=== PATIENT | female | born 1945 | race Two or more races ===

== ENCOUNTER 2025-01-29 14:50 | Emergency (ER) | payer MEDICARE, SELFPAY ==
[2025-01-29 14:51] VITALS: BMI 32.8
[2025-01-29 15:05] VITALS: BP 164/89; PULSE 91; RESP 17; O2SAT 98
--- NOTE | 2025-01-29 15:11 | EKG_ITS ---
[facility] Test Date: 2025-01-29 Pat Name: ARLEN CERVANTES Department: Room: - Gender: Female Package Checker: : 1945 Requested By: ED Temporary Provider Order Number: [id number] Reading MD: ED Temporary Provider Measurements Intervals [place] Rate: 67 P: ID: QRS: -60 QRSD: 194 T: 102 QT: 429 QTc: 453 Interpretive Statements ELECTRONIC VENTRICULAR PACEMAKER ABNORMAL RHYTHM ECG Compared to ECG 03/11/2024 01:44:52 No significant changes /[id number]/[email or web address]/[id number].pdf
--- NOTE | 2025-01-29 15:42 | XR_ITS ---
Examination: CT abdomen and pelvis without contrast. Coronal 3-D reconstructions. Sagittal 2-D reconstructions. Date and time of exam:January 29, 2025 1554 hours Comparison March 11, 2025 INDICATIONS: Lower pelvic pain and burning urination beginning 2 days ago CTDI: vol (mGy): 8.94 DLP: (mGycm): 504 Technique: Axial images of the abdomen have been obtained, 3 mm slice thickness Intravenous contrast material has not been administered. Low dose protocols were performed. One or more of the following dose reduction techniques were used; automated exposure control, adjustment of the mA and/or KV according to patient size, use of iterative reconstruction technique. Findings: Retrocardiac gastric hernia. No focal liver or splenic lesions Absent gallbladder No pancreatic mass 23 mm fat-containing left adrenal mass Absent right kidney No left renal calculi or hydronephrosis, no ureteral calculi Lower pole left renal cyst 1.4 cm Aorta normal size No pericecal inflammatory change Colonic diverticulosis, no diverticulitis Minimal thickening of urinary bladder wall up to 3 mm Absent uterus No pelvic mass Grade 1 anterolisthesis L4 on L5 Prominent osteopenia IMPRESSION: Absent right kidney No left renal calculi hydronephrosis or ureteral calculi Minimal cystitis pattern
--- NOTE | 2025-01-29 15:43 | PD.EDRME ---
Rapid Medical Screening Exam RME Arrival date/time: 01/29/25 14:50 Chief Complaint: Abdominal Pain Vital signs: Vital Signs Pulse Rate 91 01/29/25 15:05 Respiratory Rate 17 01/29/25 15:05 Blood Pressure 164/89 H 01/29/25 15:05 Pulse Oximetry (%) 98 01/29/25 15:05 Oxygen Delivery Method Room Air 01/29/25 15:05 Pulse ox room air is 98% Vital signs reviewed by provider: Yes RME Narrative: Complains of abdominal pain that is right and left lower quadrant. Denies nausea, vomiting, diarrhea.
[2025-01-29 16:28] LABS: Collection Type, Urine Clean Catch
[2025-01-29 16:33] LABS: Basophils # (Auto) 0.1 Thou/mm3 (0.0-0.2); Basophils % (Auto) 1 % (0-2.5); Eosinophils # (Auto) 0.1 Thou/mm3 (0.0-0.5); Eosinophils % (Auto) 2 % (0-10); Hematocrit 36.9 % (36.0-46.0); Hemoglobin 12.5 g/dL (12.0-16.0); Immature Granulocytes Auto 0.03 Thou/mm3 (0.00-0.00); Lymphocytes # (Auto) 1.7 Thou/mm3 (1.0-4.8); Lymphocytes % (Auto) 20 % (10-50); Mean Corpuscular HGB Conc 33.9 g/dl (31.0-37.0); Mean Corpuscular Hemoglobin 29.3 pg (25.0-35.0); Mean Corpuscular Volume 87 fL (80-100); Monocytes # (Auto) 0.5 Thou/mm3 (0.0-0.8); Monocytes % (Auto) 7 % (0-12); Neutrophils # (Auto) 5.8 Thou/mm3 (1.8-7.7); Neutrophils % (Auto) 70 % (37-80); Nucleated Red Blood Cell # 0.00 Thou/mm3 (0.00-0.00); Nucleated Red Blood Cell % 0 /100 WBC (0); Platelet Count 166 Thou/mm3 (140-440); RDW Standard Deviation 43.2 fL (36.4-46.3); Red Blood Count 4.26 Miln/mm3 (4.00-5.20); White Blood Count 8.2 Thou/mm3 (3.6-11.0)
[2025-01-29 16:49] LABS: Alanine Aminotransferase 12 U/L (10-49); Albumin, Serum 4.4 gm/dL (3.4-4.8); Albumin/Globulin Ratio 1.6 (1.2-2.2); Alkaline Phosphatase 79 U/L (46-116); Anion Gap 10 (7-16); Aspartate Amino Transferase 19 U/L (0-34); BUN/Creatinine Ratio 5 Ratio (12-20); Bilirubin,Total 0.7 mg/dL (0.3-1.2); Blood Urea Nitrogen < 5 mg/dL (9-23); Calcium 9.5 mg/dL (8.3-10.6); Calcium (Corrected) 9.5 mg/dL (8.5-10.1); Carbon Dioxide 23.9 mMol/L (20.0-31.0); Chloride 100 mMol/L (98-107); Creatinine (Component) 1.0 mg/dL (0.6-1.3); Estimated Creatinine Clearance 46.0 mL/min (>60); Globulin 2.8 gm/dL (2.3-3.5); Glucose 114 mg/dL (74-106); Osmolality,Calculated 266 (275-295); Potassium 4.2 mMol/L (3.4-5.1); Sodium 134 mMol/L (136-145); Total Protein 7.2 gm/dL (5.7-8.2); eGFR 57 See Note
[2025-01-29 16:57] LABS: Bacteria,Urine Rare; Bilirubin,Urine Negative (Negative); Blood,Urine Negative (Negative); Clarity,Urine Clear (Clear/Hazy); Color,Urine Colorless (Lt Yel-Yel); Glucose, Urine Negative (Negative); Ketones,Urine Negative (Negative); Leukocyte Esterase,Urine Positive (Negative); Nitrite,Urine Negative (Negative); PH,Urine 6.0 (5.0-7.0); Protein,Urine Negative (Neg - Trace); RBC,Urine 1 /hpf (0-3); Specific Gravity,Urine 1.008 (1.001-1.035); Squamous Epithelial Cell,Urine 1 /hpf (0-5); Urobilinogen,Urine Negative mg/dL (0.0-1.0); WBC,Urine 27 /hpf (0-5)
--- NOTE | 2025-01-29 22:09 | PC.NURSE ---
2008 NA X 1 AT THIS TIME.
--- NOTE | 2025-01-29 22:21 | PC.NURSE ---
No answer when called in the lobby
--- NOTE | 2025-01-29 22:27 | PD.EDADDENDU ---
Emergency Room Addendum Addendum Narrative: When I looked for the patient to start my evaluation, I was told the patient eloped. Terrence Wilson MD
--- NOTE | 2025-01-30 00:45 | PC.NURSE ---
PT CALLED FROM LOBBY AND I RECEIVED NO ANSWER.
== END 2025-01-30 00:45 | disposition left against medical advice (07) ==
PROVIDERS: Family Medicine; Emergency Provider Emergency Medicine; PCP Family Medicine
DX: R10.31 Right lower quadrant pain (principal); R10.32 Left lower quadrant pain; R94.31 Abnormal electrocardiogram [ECG] [EKG]; Z53.29 Procedure and treatment not carried out because of patient's decision for other reasons
CPT/HCPCS: 36415; 74176; 80053; 81001; 85025; 87077; 87086; 87186; 93005; 99281

== ENCOUNTER → 2025-02-20 | Outpatient (CLI) | payer MEDICARE, SELFPAY ==
--- NOTE | 2025-02-20 15:59 | XR_ITS ---
Examination: CT abdomen without intravenous contrast. Coronal 2-D reconstructions. Sagittal 2-D reconstructions. Date and time of exam:February 20, 2025, 6008 hours Comparison January 29, 2025 INDICATIONS: History right renal cell carcinoma, post nephrectomy, chronic abdominal pain CTDI: vol (mGy): 9.94 DLP: (mGycm): 400 Technique: Axial images of the abdomen have been obtained, 3 mm slice thickness, without intravenous contrast 2-D sagittal coronal reconstructions Low dose protocols were performed. One or more of the following dose reduction techniques were used; automated exposure control, adjustment of the mA and/or KV according to patient size, use of iterative reconstruction technique. Findings: No focal liver lesion No pancreatic mass Stable fat-containing left adrenal adenoma, 24 mm Absent right kidney No left renal solid mass Lower pole 3.7 cm left renal cyst No pericecal inflammatory change No adenopathy Small fat-containing umbilical hernia Grade 1 anterolisthesis L4 on L5 IMPRESSION: No interval metastatic disease No acute process in the abdomen
== END | disposition home or self-care (01) ==
PROVIDERS: PCP Nurse Practitioner Family; Referring Provider Nurse Practitioner Family; Visit Provider Nurse Practitioner Family
DX: G89.29 Other chronic pain (principal); R10.9 Unspecified abdominal pain
CPT/HCPCS: 74150

== ENCOUNTER 2025-04-04 09:20 | Day surgery (SDC) | payer MEDICARE, SELFPAY ==
[2025-04-04] VITALS (11 sets, daily range): BP systolic 128–174; BP diastolic 67–86; PULSE 60–81; RESP 13–21; TEMP 36.2–36.6; O2SAT 95–100; BMI 30.8
[2025-04-04] MEDS: Ampicillin Inj 2,000 MG in SODIUM CHLORIDE 0.9% (POP) 100 ML 100 MG IV (10:04)
[2025-04-04] MEDS: GENTAMICIN/NS 80 MG IVPB 80 MG in PRE-MIXED 1 BAG 50 MG IV (10:30)
[2025-04-04] MEDS: SODIUM CHLORIDE 0.9% 500 ML 500 ML 20 ML IV (10:57)
[2025-04-04] MEDS: MIDAZOLAM INJ 1 MG/ML VIAL 2 ML (ASD USE ONLY) 2 MG IVP (11:08)
[2025-04-04] MEDS: fentaNYL CIT INJ 50 mCg/ML AMP 2ML (ASD USE ONLY) IVP (11:08)
== END 2025-04-04 12:20 | disposition home or self-care (01) ==
PROVIDERS: PCP Family Medicine; Referring Provider Specialist; Visit Provider Specialist
PROC: 0DBE8ZX Excision of Large Intestine, Via Natural or Artificial Opening Endoscopic, Diagnostic (ICD-10-PCS; CPT 45380; principal; 2025-04-04 10:15)
DX: D12.3 Benign neoplasm of transverse colon (principal); K64.9 Unspecified hemorrhoids; K57.30 Diverticulosis of large intestine without perforation or abscess without bleeding; I10 Essential (primary) hypertension; E11.9 Type 2 diabetes mellitus without complications; Z79.84 Long term (current) use of oral hypoglycemic drugs; Z79.899 Other long term (current) drug therapy
CPT/HCPCS: 45385; A4217; A4649; J0290; J1200; J1580; J2250; J3010; J7999